=== PATIENT | female | born 1990 | race Caucasian/White ===

== ENCOUNTER 2016-12-31 22:07 | Emergency (ER) | payer MEDICAID, OTHER ==
[2016-12-31 23:07] LABS: Bilirubin Negative (Negative); Blood, Urine Small (Negative); Clarity Cloudy (Clear); Glucose, Urine (Dipstick) Negative (Negative); Leukocyte Negative (Negative); Nitrite Negative (Negative); Protein, Urine (Dipstick) Negative (Neg-Trace); Specific Gravity, Urine 1.025 (1.005-1.030); Urobilinogen 0.2 mg/dL (0.2-1.0)
[2016-12-31 23:09] LABS: Bacteria/HPF 2+ HPF (None Seen); Crystals/HPF 1+ AMORPH PHOS HPF (Negative); Renal Epithelial 0-3 HPF (0-3); Transitional Epithelial 0-3 HPF (0-3); Yeast-All Forms 1+ HPF (None Seen)
[2016-12-31 23:10] LABS: Pregu Control Bar Appear? YES (CONTROL BAR); Specific Gravity 1.025 (1.002-1.036)
== END 2017-01-01 00:06 | disposition home or self-care (01) ==
LOC: MADERS 22:07
DX: O99.89 Other specified diseases and conditions complicating pregnancy, childbirth and the puerperium (principal); R10.12 Left upper quadrant pain; Z3A.25 25 weeks gestation of pregnancy
CPT/HCPCS: 36415; 81003; 81015; 81025; 84702; 87086; 99284

== ENCOUNTER 2017-04-13 17:48 | Emergency (ER) | payer MEDICAID, SELFPAY ==
[2017-04-13] MEDS ORDERED: Acetaminophen/Codeine 30-300mg Tablet ONE (18:10)
[2017-04-13] MEDS ORDERED: Naproxen 500 MG TAB ONE (18:10)
--- NOTE | 2017-04-13 19:13 | RAD ---
LEFT ANKLE THREE VIEWS: 04/13/17 HISTORY: 26-year-old female with left ankle pain following a twisting injury yesterday. Minimal lateral soft tissue swelling. No fracture, dislocation or other significant osseous abnormal ity. IMPRESSION: Soft tissue swelling without fracture or dislocation. POS: [facility]
== END 2017-04-13 18:55 | disposition home or self-care (01) ==
LOC: MADERS 17:48
DX: S93.402A Sprain of unspecified ligament of left ankle, initial encounter (principal); F17.210 Nicotine dependence, cigarettes, uncomplicated; X58.XXXA Exposure to other specified factors, initial encounter

== ENCOUNTER 2018-03-08 13:38 | Emergency (ER) | payer OTHER ==
[2018-03-08] MEDS ORDERED: Adacel (T-DAP) 0.5 ML VIAL ONE (14:25)
[2018-03-08] MEDS ORDERED: Bacitracin Zinc 1 Packet ONE (14:49)
== END 2018-03-08 14:59 | disposition home or self-care (01) ==
LOC: MADERS 13:38
DX: S61.412A Laceration without foreign body of left hand, initial encounter (principal); F17.210 Nicotine dependence, cigarettes, uncomplicated; Z23 Encounter for immunization; W26.0XXA Contact with knife, initial encounter; Y92.009 Unspecified place in unspecified non-institutional (private) residence as the place of occurrence of the external cause
CPT/HCPCS: 12001; 90471; 90715; J2001

== ENCOUNTER 2019-02-16 16:25 | Emergency (ER) | payer OTHER, SELFPAY | END 2019-02-16 17:35 | disposition home or self-care (01) | LOC: MADERS 16:25 | DX: K04.7 Periapical abscess without sinus (principal); F17.210 Nicotine dependence, cigarettes, uncomplicated | CPT/HCPCS: 64400 ==

== ENCOUNTER 2020-05-22 19:34 | Emergency (ER) | payer BC, SELFPAY | END 2020-05-22 20:46 | disposition home or self-care (01) | LOC: MADERS 19:34 | DX: K04.4 Acute apical periodontitis of pulpal origin (principal); F17.210 Nicotine dependence, cigarettes, uncomplicated | CPT/HCPCS: 99282 ==

== ENCOUNTER 2020-05-30 10:31 | Emergency (ER) | payer BC ==
[2020-05-30 12:05] LABS: Bilirubin Negative (Negative); Blood, Urine Trace (Negative); Clarity Clear (Clear); Glucose, Urine (Dipstick) Negative (Negative); Ketone, Urine Negative (Negative); Leukocyte Negative (Negative); Nitrite Negative (Negative); Protein, Urine (Dipstick) Negative (Neg-Trace); Urobilinogen 0.2 mg/dL (Less than 2)
[2020-05-30 12:09] LABS: Pregnancy Test - Urine (BHCG) Negative (Negative); Pregu Control Background? CLEAR/WHITE (CLR/WHITE); Pregu Control Bar Appear? YES (CONTROL BAR)
[2020-05-30 12:11] LABS: Bacteria/HPF Rare-Few HPF (None Seen); RBC/HPF 0-3 HPF (0-3); WBC/HPF 0-3 HPF (0-3)
== END 2020-05-30 12:30 | disposition home or self-care (01) ==
LOC: MADERS 10:31
DX: R10.9 Unspecified abdominal pain (principal); R39.198 Other difficulties with micturition; F17.210 Nicotine dependence, cigarettes, uncomplicated
CPT/HCPCS: 81003; 81015; 81025